=== PATIENT | female | born 1940 | race Caucasian/White ===

== ENCOUNTER → 2016-04-27 | Outpatient (CLI) | payer MEDICARE, OTHER ==
[~2016-04-27] MED LIST: GAVICHW CHEW; LEVO-171 PO; MULTTAB67 PO; OMEP20TA PO; TAB-TAB; ZOLE5P IV
--- NOTE | 2016-04-27 14:57 | RADRPT ---
EXAM DATE/TIME: 04/27/2016 13:34 [facility] COMPARISON: No previous studies available for comparison. INDICATIONS : Tremors in left hand starting three months ago. DOSE: 5.5 mCi Ioflupane Iodine-123 in 2.5 ml total volume MEDICATION(S): 130 mg Potasium Iodine PO one hour prior to injection SPECT IMAGIN.5 hrs IMAGNG: SPECT/CT imaging with fusion was performed. RADIATION DOSE: 30.27 CTDIvol (mGy) MEDICAL HISTORY : Acid reflux and benign lung tumor. SURGICAL HISTORY : Tonsillectomy. ENCOUNTER: Initial ACUITY: 3 months PAIN SCALE: 0/10 LOCATION: Head. TECHNIQUE: SPECT imaging of the brain was performed in sagittal, axial and coronal planes. Attenuation correctio n was performed with computed tomography and both the attenuation correction and non-attenuation juanis ected data sets were reviewed. FINDINGS: There is abnormal biodistribution of radionuclide with absent activity in the putamen bilaterally. CONCLUSION: Abnormal pattern of uptake with severely decreased or absent activity in the putamen bilaterally. 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 Sai Julien MD on April 27, 2016 at 14:48 Board Certified Radiologist. This report was verified electronically.
== END ==
LOC: HRAD 09:14
PROVIDERS: ATTEND Specialist
DX: G20 Parkinson's disease (principal)
CPT/HCPCS: 78607; A9584

== ENCOUNTER → 2016-05-12 | Outpatient (CLI) | payer MEDICARE, OTHER | LOC: PLAB 10:31 | PROVIDERS: ATTEND Specialist | DX: E53.8 Deficiency of other specified B group vitamins (principal) | CPT/HCPCS: 82607 ==

== ENCOUNTER → 2016-06-25 | Outpatient (CLI) | payer MEDICARE, OTHER ==
[2016-06-25 09:10] LABS: HEMATOCRIT 49.7 % (35.0-46.0); MEAN CELL VOLUME 92.8 FL (80.0-100.0); MEAN CORPUSCULAR HEMOGLOBIN 29.9 PG (27.0-34.0); MEAN CORPUSCULAR HGB CONC 32.2 % (32.0-36.0); PLATELET COUNT 217 TH/MM3 (150-450); RED BLOOD COUNT 5.35 MIL/MM3 (4.00-5.30); RED CELL DISTRIBUTION WIDTH 18.2 % (11.6-17.2); REVIEW FLAG FINAL; WHITE BLOOD COUNT 8.2 TH/MM3 (4.0-11.0)
[2016-06-25 10:21] LABS: ALKALINE PHOSPHATASE 96 U/L (45-117); ALT (GPT) 20 U/L (10-53); ANION GAP 5 MEQ/L (5-15); AST (GOT) 24 U/L (15-37); BICARBONATE 30.5 MEQ/L (21.0-32.0); BLOOD UREA NITROGEN 16 MG/DL (7-18); CHLORIDE 105 MEQ/L (98-107); FREE T4 1.12 NG/DL (0.76-1.46); GLOMERULAR FILTRATION RATE 69 ML/MIN (>89); GLUCOSE,FASTING 86 MG/DL (74-99); HDL CHOLESTEROL 69.3 MG/DL (40.0-60.0); LDL CHOLESTEROL 106 MG/DL (0-99); LDL CHOLESTEROL DIRECT 98 MG/DL (0-99); POTASSIUM 4.2 MEQ/L (3.5-5.1); SODIUM (NA) 140 MEQ/L (136-145); TOTAL BILIRUBIN ADULT 0.7 MG/DL (0.2-1.0)
[2016-06-25 13:27] LABS: BLOOD, URINE SMALL (NEG); GLUCOSE,URINE NEG (NEG); KETONE, URINE NEG (NEG); NITRITE,URINE NEG (NEG); PH, URINE 6.5 (5.0-8.5); SQUAMOUS EPITHELIAL CELL URINE <1 /hpf (0-5); URINE COLOR LIGHT-YELLOW (YELLW/STRAW)
== END ==
LOC: PLAB 07:21
PROVIDERS: ATTEND Internal Medicine
DX: R79.9 Abnormal finding of blood chemistry, unspecified (principal); M15.0 Primary generalized (osteo)arthritis; E78.5 Hyperlipidemia, unspecified; E03.9 Hypothyroidism, unspecified; I10 Essential (primary) hypertension
CPT/HCPCS: 36415; 80053; 80061; 81001; 83721; 84439; 84443; 85027; 86140

== ENCOUNTER → 2016-08-03 | Outpatient (CLI) | payer MEDICARE, OTHER ==
[~2016-08-03] MED LIST changes: -GAVICHW CHEW; -LEVO-171 PO; -MULTTAB67 PO; -OMEP20TA PO; -ZOLE5P IV
== END ==
LOC: PLAB 11:35
PROVIDERS: ATTEND Internal Medicine
DX: M15.0 Primary generalized (osteo)arthritis (principal)
CPT/HCPCS: 36415; 85652

== ENCOUNTER → 2016-11-15 | Outpatient (CLI) | payer MEDICARE, OTHER ==
[~2016-11-15] MED LIST changes: +GAVICHW CHEW; +LEVO-171 PO; +MULTTAB67 PO; +OMEP20TA PO; -TAB-TAB; +ZOLE5P IV
--- NOTE | 2016-11-15 10:57 | RADRPT ---
EXAM DATE/TIME: 11/15/2016 10:22 [facility] COMPARISON: No previous studies available for comparison. INDICATIONS : Dysphagia FLUORO TIME: 1.2 minutes IMAGE COUNT: 1 CONTRAST: Dose as prescribed by speech pathologist. MEDICAL HISTORY : Gastroesophageal reflux disease. Parkinson SURGICAL HISTORY : None. ENCOUNTER: Initial ACUITY: 1 month PAIN SCORE: 0/10 LOCATION: Bilateral Esophagus FINDINGS: A modified barium swallow was performed with speech pathology. Patient was given a variety of liquids to swallow. There is normal deglutition without evidence for aspiration or laryngeal penetration. No evidence for focal oropharyngeal abnormality. For a full detailed report, see report by the speech pathologist. CONCLUSION: 1. Unremarkable modified barium swallow examination. Andriy Shannon MD on November 15, 2016 at 10:54 Board Certified Radiologist. This report was verified electronically.
== END ==
LOC: HRAD 09:50
PROVIDERS: ATTEND Physician Assistant Medical
DX: R13.10 Dysphagia, unspecified (principal)
CPT/HCPCS: 74230; 92611; G8996; G8997; G8998

== ENCOUNTER → 2016-12-16 | Outpatient (CLI) | payer MEDICARE, OTHER ==
[2016-12-16 09:42] LABS: HEMATOCRIT 50.2 % (35.0-46.0); HEMOGLOBIN 16.6 GM/DL (11.6-15.3); MEAN CELL VOLUME 94.6 FL (80.0-100.0); MEAN CORPUSCULAR HEMOGLOBIN 31.3 PG (27.0-34.0); MEAN CORPUSCULAR HGB CONC 33.1 % (32.0-36.0); MEAN PLATELET VOLUME 8.2 FL (7.0-11.0); PLATELET COUNT 242 TH/MM3 (150-450); WHITE BLOOD COUNT 10.2 TH/MM3 (4.0-11.0)
[2016-12-16 09:58] LABS: BILIRUBIN, URINE NEG (NEG); BLOOD, URINE SMALL (NEG); GLUCOSE,URINE NEG (NEG); KETONE, URINE TRACE mg/dL (NEG); MUCUS URINE FEW /lpf (OCC); NITRITE,URINE NEG (NEG); PH, URINE 6.5 (5.0-8.5); URINE COLOR YELLOW (YELLW/STRAW); URINE LEUKOCYTE ESTERASE NEG (NEG)
[2016-12-16 10:28] LABS: ALBUMIN 3.6 GM/DL (3.4-5.0); AST (GOT) 25 U/L (15-37); BICARBONATE 27.6 MEQ/L (21.0-32.0); BLOOD UREA NITROGEN 16 MG/DL (7-18); CALCIUM 9.2 MG/DL (8.5-10.1); CHLORIDE 102 MEQ/L (98-107); CHOLESTEROL 171 MG/DL (120-200); CREATININE 0.71 MG/DL (0.50-1.00); GLOMERULAR FILTRATION RATE 80 ML/MIN (>89); GLUCOSE,FASTING 90 MG/DL (74-99); SODIUM (NA) 139 MEQ/L (136-145)
[2016-12-16 10:46] LABS: ALKALINE PHOSPHATASE 99 U/L (45-117); ALT (GPT) 24 U/L (10-53); CHOLESTEROL/ HDL RATIO 2.32 RATIO; HDL CHOLESTEROL 73.7 MG/DL (40.0-60.0); LDL CHOLESTEROL 85 MG/DL (0-99); LDL CHOLESTEROL DIRECT 89 MG/DL (0-99); TOTAL BILIRUBIN ADULT 0.7 MG/DL (0.2-1.0); TOTAL PROTEIN 7.3 GM/DL (6.4-8.2); TRIGLYCERIDES 64 MG/DL (42-150)
== END ==
LOC: PLAB 08:02
PROVIDERS: ATTEND Internal Medicine
DX: E03.9 Hypothyroidism, unspecified (principal); E78.5 Hyperlipidemia, unspecified
CPT/HCPCS: 36415; 80053; 80061; 81001; 83721; 84439; 84443; 85027

== ENCOUNTER → 2017-08-10 | Day surgery (SDC) | payer MEDICARE, OTHER ==
[~2017-08-10] VITALS: Ht 165.1 cm; Wt 57.0 kg
[~2017-08-10] MED LIST changes: +CARB25TA9 PO; +CETI10CA3 PO; +CHLORHEXIDINE GLUCONATE 2 % 1 PACK (2 CLOTHS) TOPICAL PRN; +KETOROLAC TROMETHAMINE 30 MG/ML (IVP) VIAL ONE; +LACTATED RINGER'S 1000 ML IV PRN; +LIDOCAINE HCL 1% PF 5 ML SYRINGE OTHER ONE; +METOPROLOL TARTRATE 25 MG TAB PO PRN; -OMEP20TA PO; +OMEP20TA93 PO; +PANT40TA3 PO; +PHENYLEPH/NS 1000 MCG/10 ML SYR IV ONE; +POVIDONE IODINE 5% (ANTISEPSIS KIT) 4 APPLICATIONS EACH NARE PRN; +PROPOFOL 200 MG/20 ML AMP IV ONE; +SODIUM CHLORID 0.9% 500 ML IV PRN; +[UNRECOGNIZED DRUG - CODE] TOPICAL; +ceFAZolin 1,000 MG/NS 100 ML IV SCH
[2017-08-10 10:12] LABS: BILIRUBIN, URINE NEG (NEG); BLOOD, URINE MOD (NEG); GLUCOSE,URINE NEG (NEG); KETONE, URINE NEG (NEG); NITRITE,URINE NEG (NEG); PH, URINE 6.5 (5.0-8.5); URINE COLOR YELLOW (YELLW/STRAW); URINE LEUKOCYTE ESTERASE TRACE (NEG)
[2017-08-10 10:14] LABS: HEMATOCRIT 48.1 % (35.0-46.0); MEAN CELL VOLUME 99.1 FL (80.0-100.0); MEAN CORPUSCULAR HEMOGLOBIN 35.1 PG (27.0-34.0); MEAN CORPUSCULAR HGB CONC 35.4 % (32.0-36.0); PLATELET COUNT 264 TH/MM3 (150-450); RED BLOOD COUNT 4.86 MIL/MM3 (4.00-5.30); RED CELL DISTRIBUTION WIDTH 18.4 % (11.6-17.2); WHITE BLOOD COUNT 10.1 TH/MM3 (4.0-11.0)
[2017-08-10 10:17] LABS: SQUAMOUS EPITHELIAL CELL URINE 0-5 /hpf (0-5); WBC, URINE 0-2 /hpf (0-5)
[2017-08-10 10:20] LABS: CHLORIDE 104 MEQ/L (98-107); SODIUM (NA) 141 MEQ/L (136-145)
[2017-08-10 10:23] LABS: CALCIUM 9.5 MG/DL (8.5-10.1)
[2017-08-10 10:24] LABS: BICARBONATE 29.5 MEQ/L (21.0-32.0); BLOOD UREA NITROGEN 15 MG/DL (7-18); GLUCOSE,RANDOM 97 MG/DL (74-106)
[2017-08-10 10:27] LABS: ALT (GPT) 7 U/L (10-53); AST (GOT) 19 U/L (15-37); CREATININE 0.79 MG/DL (0.50-1.00); GLOMERULAR FILTRATION RATE 71 ML/MIN (>89)
[2017-08-10 10:28] LABS: TOTAL BILIRUBIN ADULT 0.7 MG/DL (0.2-1.0)
[2017-08-10 10:29] LABS: TOTAL PROTEIN 7.8 GM/DL (6.4-8.2)
[2017-08-10 10:30] LABS: ALKALINE PHOSPHATASE 88 U/L (45-117)
--- NOTE | 2017-08-10 11:45 | RADRPT ---
EXAM DATE: 08/10/2017 11:30 AM EDT AGE/SEX: 76 years / Female INDICATIONS: Evaluate for pneumonia, pneumothorax, or communicable disease. Pre op for pelvic surger y. CLINICAL DATA: This is the patient's initial encounter. Patient reports that signs and symptoms have been present for 1 day and indicates a pain score of 0/10. MEDICAL/SURGICAL HISTORY: Osteoporosis. Thyroid disease. Parkinson's. Melanoma. Tonsillectomy . COMPARISON: POI, XR CHEST PA AND LAT, 07/21/2009. . FINDINGS: No evidence of infiltrate or effusion. Heart size and mediastinal contours are otherwise satisfactory . CONCLUSION: No acute disease Electronically signed by: Heath Martinez MD 08/10/2017 11:44 AM EDT
--- NOTE | 2017-08-10 13:05 | PD.OP ---
cc: Ottoniel Esparza MD Operative Report Date of Surgery: Aug 10, 2017 Preoperative Diagnosis: (1) PMB (postmenopausal bleeding) (2) Abnormal findings on imaging test (3) Cervical stenosis (uterine cervix) Postoperative Diagnosis: (1) Endometrial polyp (2) PMB (postmenopausal bleeding) (3) Abnormal findings on imaging test (4) Cervical stenosis (uterine cervix) Procedure: Hysteroscopy and dilation and curettage Polypectomy Anesthesia: gen by GOKUL Greenwood/Dr. Zayas Surgeon: Millie Baptiste [place] Worker(s): Tyler Cole Surgeon: n/a Operation and Findings: Indications: [-This 76 y/o lung cancer survivor had an episode of post- menopausal bleeding. Endometrial biopsy was attempted in office but not possible due to cervical stenosis. Subsequent ultrasound showed irregular and thickened endometrium. Suspicious for polyp.] Findings: Patient was found on hysteroscopic view to have [polyp,-] confirmed to be removed by repeat hysteroscopy post dilation and curettage. There was also abnormal vessels on this polyp and some irregularity to the remaining endometrium with thick areas and abnormal blood vessels. The uterus sounded to 8 cm. Curettage sample was fractionated cervix and endometrium. Procedure: Patient was brought to the OR and laid supine on the table. After inducing general anesthesia she was positioned in low stirrups in dorso- lithotomy position. An open-sided speculum was placed in the vagina after Betadine prep and time out. The anterior lip of the cervix was grasped with a single tooth tenaculum, and the cervix was dilated to accept a standard rigid hysteroscope. After viewing and taking pictures, the polyp was extracted with polyps forceps. The endometrium was the thoroughly sampled using a medium sharp curet. Moderate tissue returned. A second hysteroscopic view confirmed that all the findings described above were included in the specimen. The procedure being complete, the instruments were removed, the patient was replaced supine and she was awakened. She was transferred to the PACU breathing on her own in stable condition. Sponge, needle, and instrument counts were correct. Millie Baptiste MD Aug 10, 2017 13:05
[2017-08-10 14:10] VITALS: BP 131/68; PULSE 85; RESP 16; TEMP 97.7; O2SAT 99
== END | disposition home or self-care (01) ==
LOC: PHSDC 08:02
PROVIDERS: ATTEND Obstetrics & Gynecology
DX: N95.0 Postmenopausal bleeding (principal); N88.2 Stricture and stenosis of cervix uteri; N84.0 Polyp of corpus uteri; R93.8 Abnormal findings on diagnostic imaging of other specified body structures; R11.0 Nausea; C34.91 Malignant neoplasm of unspecified part of right bronchus or lung; K21.9 Gastro-esophageal reflux disease without esophagitis; G20 Parkinson's disease; Z01.818 Encounter for other preprocedural examination
CPT/HCPCS: 00952; 36415; 58558; 71045; 80053; 81001; 85027; 88305; J0690; J1885; J3010; J7120; J2370